=== PATIENT | female | born 1970 | race Caucasian/White ===

== ENCOUNTER → 2019-03-05 15:37 | Outpatient (CLI) | payer BC, SELFPAY ==
--- NOTE | 2019-03-05 15:45 | RAD_ITS ---
STUDY: X-RAY - LUMBAR SPINE REASON FOR EXAM: Female, 48 years old. LET HIP AND LEG PAIN, X 14 MONTHS, NKI TECHNIQUE: 5 view(s) of the lumbar spine were obtained. COMPARISON: None FINDINGS: Normal lumbar lordosis. There is no substantial scoliosis. There is a normal alignment of the vertebrae. Normal vertebral bodies and endplates. Moderate narrowing of the disc at L5-S1. Otherwise normal disc space heights. There is no demonstrated fracture. The soft tissue structures are unremarkable. RAD/L/S Spine Min 4 Views IMPRESSION: No acute abnormality. Degenerative disc disease at L5-S1. Electronically Signed: Kwabena Tirado MD at 22:17 EST , Service support ,
== END ==
PROVIDERS: PCP Family Medicine; Referring Provider Nurse Practitioner Family; Visit Provider Nurse Practitioner Family
DX: M51.37 Other intervertebral disc degeneration, lumbosacral region (principal); M47.817 Spondylosis without myelopathy or radiculopathy, lumbosacral region
CPT/HCPCS: 72110

== ENCOUNTER → 2020-04-07 15:22 | Outpatient (CLI) | payer BC, SELFPAY ==
--- NOTE | 2020-04-07 15:40 | MRI_ITS ---
STUDY: MRI LUMBAR SPINE WITHOUT CONTRAST REASON FOR EXAM: Female, 49 years old. disc degen, radiculopathy, spondylosis, lbp, left hip/groin pain TECHNIQUE: Standardized fat and water weighted pulse sequences were obtained in the sagittal and axial planes. COMPARISON: Lumbar spine x-rays 03/05/2019 FINDINGS: T12-L1: Normal endplates. Normal disc height, hydration and morphology. Normal bilateral facet joints. Normal central canal and bilateral lateral recesses. Normal bilateral intervertebral neural foramina. Normal lumbar lordosis. There is no substantial scoliosis. Normal conus medullaris that terminates at L1 L1-2: Normal endplates. Normal disc height, hydration and morphology. Normal bilateral facet joints. Normal central canal and bilateral lateral recesses. Normal bilateral intervertebral neural foramina. L2-3: Normal endplates. Normal disc height, hydration and morphology. Normal bilateral facet joints. Normal central canal and bilateral lateral recesses. Normal bilateral intervertebral neural foramina. L3-4: Normal endplates. Normal disc height, hydration and minimal annular bulge. Normal bilateral facet joints. Normal central canal and bilateral lateral recesses. Normal bilateral intervertebral neural foramina. L4-5: Normal endplates. Normal disc height, desiccation and mild bulging of the annulus with tiny central annular tear and disc protrusion.. Mild facet arthropathy and thickening of ligamenta flava greater on the left. Normal central canal. Mild left lateral recess and neuroforaminal stenosis. L5-S1: Normal endplates. Normal disc height, desiccation and tiny central annular tear with disc protrusion.. Mild facet arthropathy slightly greater on the left.. Minor narrowing of the central canal. Normal bilateral lateral recesses. Normal bilateral intervertebral neural foramina. Normal visualized sacral ala. Normal visualized paraspinous soft tissue structures No significant change since previous exam given differences in imaging modalities.. MRI/Spine Lumbar (Routine) IMPRESSION: No evidence for acute fracture or other significant bony pathology. Mild spinal stenosis at L4-5 on the left secondary to mild bulging annulus with tiny central annular tear and disc protrusion with facet arthropathy and thickening of ligamenta flava greater on the left.. Tiny central annular tear and disc protrusion at L5-S1 with mild facet arthropathy and minor narrowing of the central canal Electronically Signed: Parish Woodruff MD at 16:21 EST , Service support ,
== END ==
PROVIDERS: PCP Family Medicine; Referring Provider Nurse Practitioner Family; Visit Provider Nurse Practitioner Family
DX: M47.27 Other spondylosis with radiculopathy, lumbosacral region (principal); M51.17 Intervertebral disc disorders with radiculopathy, lumbosacral region
CPT/HCPCS: 72148

== ENCOUNTER → 2021-10-14 | Outpatient (CLI) | payer OTHER, SELFPAY ==
--- NOTE | 2021-10-14 08:15 | HIP_PTH ---
PATIENT: ARUN WOLF LOC: [facility] U#:[id number] AGE/SX: 51/F ROOM: RE10/14/[address]: Dr. Alli Kaye MD : 1970 BED: DIS: 10/14/2021 SPEC #: [id number] RECD: 10/14/21 14:53 STATUS: HATTIE REQ #: [id number] POOL: 10/14/21 08:[address]: Alli Kaye DEPT: SURGICAL PATHOLOGY RECD BY: Marjorie Lopez ENTERED: 10/17/21 08:25 SP TYPE: TOTAL HIP OTHR DR: Dr. Mushtaq Lucas MD [facility] Tissues: Hip, NOS Procedures: Decalcification bone/plaque Surgery Specimen Level IV HEADER OPERATION: Left total hip arthroplasty PRE-OP DIAGNOSIS: Left hip primary osteoarthritis TISSUE SUBMITTED: Left hip bone and tissue MICROSCOPIC DIAGNOSIS Left hip bone and tissue, total hip replacement/resection: Femoral head with degenerative osteoarthritic changes. Fragments of fibroconnective tissue and reactive synovial tissue. DARLEEN:evaristo 10/20/2021 MICROSCOPIC DESCRIPTION Slides are reviewed. GROSS DESCRIPTION Received is one container labeled with the patient's name and designated left hip bone and tissue. The specimen consists of a munguia femoral head with portion of femoral neck. The femoral head measures 4 x 4.5 x 3.5 cm and the femoral neck measures up to 1 cm in length. The articular surface displays prominent osteophyte formation, eburnation and bone erosion. Also present in the specimen container are multiple irregular fragments of bone reamings and pink-yellow soft tissue measuring in aggregate 6 x 7 x 2 cm. [employer] sections are submitted in two cassettes after decalcification as follows: 1 - soft tissue with bone reamings, 2 - bone. / DARLEEN:evaristo 10/17/2021 TC:5 CPT: 86894, [id number]
== END | disposition home or self-care (01) ==
LOC: LAB 10-17 08:12 → LABSPEC 10-18 07:35
PROVIDERS: PCP Family Medicine; Visit Provider Orthopaedic Surgery
DX: M16.12 Unilateral primary osteoarthritis, left hip (principal)
CPT/HCPCS: 88305; 88311